=== PATIENT | male | born 1975 | race African-American/Black ===

== ENCOUNTER 2016-12-29 15:37 | Emergency (ER) | payer SELFPAY ==
[~2016-12-29] VITALS: Ht 180.3 cm; Wt 82.4 kg
[~2016-12-29 15:37] MED LIST: ALBUTEROL0.5 % IN; AMOXICILLIN500 MG OR; BACTROBAN2 % EX; FLONASE NASAL50 MCG; NO MEDS
[2016-12-29] MEDS ORDERED: PENICILLN VK500 MG PO ×2 (15:54→16:32)
[2016-12-29] MEDS ORDERED: LORTAB 5/3255 MG PO (15:54)
[2016-12-29 16:04] VITALS: BP 140/80
== END 2016-12-29 16:06 | disposition home or self-care (01) | DRG 159 ==
LOC: ED 15:37
DX: K08.89 Other specified disorders of teeth and supporting structures (principal); F17.290 Nicotine dependence, other tobacco product, uncomplicated

== ENCOUNTER 2018-11-21 16:23 | Emergency (ER) | payer SELFPAY ==
[~2018-11-21] VITALS: Ht 180.3 cm; Wt 88.0 kg
[~2018-11-21 16:23] MED LIST changes: +LORTAB 5/3255 MG PO; +PENICILLN VK500 MG PO
[2018-11-21] MEDS ORDERED: PENICILLN VK500 MG PO (16:52)
[2018-11-21 17:00] VITALS: BP 126/53
== END 2018-11-21 17:00 | disposition home or self-care (01) | DRG 159 ==
LOC: ED 16:23
DX: K04.7 Periapical abscess without sinus (principal); K02.9 Dental caries, unspecified; F17.290 Nicotine dependence, other tobacco product, uncomplicated

== ENCOUNTER 2021-05-15 10:15 | Emergency (ER) | payer OTHER ==
[~2021-05-15] VITALS: Ht 180.3 cm; Wt 87.0 kg
[2021-05-15 10:44] VITALS: BP 141/99
[2021-05-15 10:45] VITALS: BP 138/93
[2021-05-15 11:00] VITALS: BP 141/98
[2021-05-15 11:15] VITALS: BP 129/84
[2021-05-15] MEDS ORDERED: DOXYCYCLINE100 MG PO (11:17)
[2021-05-15] MEDS ORDERED: OMNI-PAC300 MG PO (11:17)
[2021-05-15 11:30] VITALS: BP 136/86
[2021-05-15 11:33] VITALS: BP 136/86
== END 2021-05-15 12:05 | disposition home or self-care (01) | DRG 603 ==
LOC: ED 10:15
DX: L03.116 Cellulitis of left lower limb (principal); L03.115 Cellulitis of right lower limb; I10 Essential (primary) hypertension; F17.210 Nicotine dependence, cigarettes, uncomplicated